=== PATIENT | male | born 1965 | race African-American/Black ===

== ENCOUNTER 2025-04-08 11:14 | Emergency (ER) | payer MEDICAID ==
[~2025-04-08] VITALS: Ht 175.3 cm; Wt 70.0 kg
--- NOTE | 2025-04-08 11:35 | ED.PDOC ---
HPI (NEURO) HPI Comments This is a 60 year old male presenting to the ED with chief complaint of dizziness. Patient reports that he has been experiencing worsening dizziness with associated loss of balance, nausea, and chills since last Saturday. Patient relays that he has been in close contact with sick individuals at his workplace recently. Patient denies any vomiting, diarrhea, chest pain, SOB, headache, or syncope. Chief Complaint: Dizziness Time Seen by MD: 11:33 Reviewed Notes: Nurses Notes, Medications, Allergies Information Source: Patient Mode of Arrival: Ambulatory Severity: Moderate Dizziness/Weakness Severity: Unable to do activities Timing: Days Duration: Since onset Prehospital treatment: None Onset: At rest Circumstances: Spontaneous Associated Signs and Symptoms: Nausea Past Medical History PAST MEDICAL HISTORY: DM Surgical History: Hernia Repair Family History Family History: Reviewed,noncontributory to illness, Family hx of DM, Family hx of HTN Social History Smoker: Non-Smoker Alcohol: Denies ETOH Use Drugs: Denies Drug Use Lives In: Home Constitutional: denies: chills, diaphoresis, fatigue, fever, malaise, sweats, weakness, others EENTM: denies: blurred vision, double vision, ear bleeding, ear discharge, ear drainage, ear pain, ear ringing, eye pain, eye redness, hearing loss, mouth pain, mouth swelling, nasal discharge, nose bleeding, nose congestion, nose pain, photophobia, tearing, throat pain, throat swelling, voice changes, others Respiratory: denies: cough, hemoptysis, orthopnea, SOB at rest, shortness of breath, SOB with excertion, stridor, wheezing, others Cardiovascular: denies: chest pain, dizzy spells, diaphoresis, Dyspnea on exertion, edema, irregular heart beat, left arm pain, lightheadedness, palpitations, PND, syncope, others Gastrointestinal: reports: nausea; denies: abdomen distended, abdominal pain, blood streaked bowels, constipated, diarrhea, dysphagia, difficulty swallowing, hematemesis, melena, poor appetite, poor fluid intake, rectal bleeding, rectal pain, vomiting, others Genitourinary: denies: burning, dysuria, flank pain, frequency, hematuria, incontinence, penile discharge, penile sore, pain, testicle pain, testicle swelling, urgency, others Neurological: reports: dizziness, others (Loss of balance); denies: fainting, headache, left sided numbness, left sided weakness, numbness, paresthesia, pre- existing deficit, right sided numbness, right sided weakness, seizure, speech problems, tingling, tremors, weakness Musculoskeletal: denies: back pain, gout, joint pain, joint swelling, muscle pa in, muscle stiffness, neck pain, others Integumetry: denies: bruises, change in color, change in hair/nails, dryness, laceration, lesions, lumps, rash, wounds, others Allergic/Immunocompromised: denies: Difficulty Healing, Frequent Infections, Hives, Itching, others Hematologic/Lymphatic: denies: anemia, blood clots, easy bleeding, easy bruising, swollen glands, others Endocrine: denies: excessive hunger, excessive sweating, excessive thirst, excessive urination, flushing, intolerance to cold, intolerance to heat, unexplained weight gain, unexplained weight loss, others Psychiatric: denies: anxiety, bipolar disorder, depression, hopeless, panic disorder, schizophrenia, sleepless, suicidal, others All Other Systems: Reviewed and Negative Physical Exam General Appearance: No Apparent Distress HEENT: Normal ENT Inspection, Pharynx Normal, TMs Normal Neck: Full Range of Motion, Non-Tender, Normal, Normal Inspection Respiratory: Chest Non-Tender, Lungs Clear, No Accessory Muscle Use, No Respiratory Distress, Normal Breath Sounds Cardiovascular: No Edema, No JVD, No Murmur, No Gallop, Normal Peripheral Pulses, Regular Rate/Rhythm Breast Exam: Deferred Gastrointestinal: No Organomegaly, Non Tender, No Pulsatile Mass, Normal Bowel Sounds, Soft Genitalia: Deferred Pelvic: Deferred Rectal: Deferred Extremities: No calf tenderness, Normal capillary refill, Normal inspection, Normal range of motion, Non-tender, No pedal edema Musculoskeletal : Apperance: Normal Neurologic: Alert, 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 Was a procedure done?: No Differential Diagnosis (SZ) Seizure: CVA/TIA, Idiopathic, Syncope General Weakness: Anemia X-Ray, Labs, Meds, VS Vital Signs Date Time Temp Pulse Resp B/P (MAP) Pulse Ox O2 Delivery O2 Flow Rate FiO2 04/08/25 11:37 90 04/08/25 11:36 90 04/08/25 11:16 97.8 100 18 119/83 96 97.8 Lab Test 04/08/25 11:40 Range/Units White Blood Count 3.6 L 4.4-10.8 10^3/uL Red Blood Count 5.60 4.5-5.90 10^6/uL Hemoglobin 16.2 13.5-17.5 g/dL Hematocrit 47.9 41.0-53.0 % Mean Corpuscular Volume 85.6 80.0-100.0 fL Mean Corpuscular Hemoglobin 28.8 28.0-32.0 pg Mean Corpuscular Hemoglobin Concent 33.7 32.0-36.0 g/dL Red Cell Distribution Width 13.6 11.8-14.3 % Platelet Count 395 140-450 10^3/uL Mean Platelet Volume 6.6 L 6.9-10.8 fL Neutrophils (%) (Auto) 50.4 37.0-80.0 % Lymphocytes (%) (Auto) 31.4 10.0-50.0 % Monocytes (%) (Auto) 12.9 H 0.0-12.0 % Eosinophils (%) (Auto) 3.4 0.0-7.0 % Basophils (%) (Auto) 1.9 0.0-2.0 % Neutrophils # (Auto) 1.8 1.6-8.6 10 ^3/uL Lymphocytes # (Auto) 1.1 0.4-5.4 10 ^3/uL Monocytes # (Auto) 0.5 0-1.3 10 ^3/uL Eosinophils # (Auto) 0.1 0-0.8 10 ^3/uL Basophils # (Auto) 0.1 0-0.2 10 ^3/uL Nucleated Red Blood Cells 0.0 % Sodium Level 139 136-145 mmol/L Potassium Level 4.0 3.5-5.1 mmol/L Chloride Level 101 98-107 mmol/L Carbon Dioxide Level 31 20-31 mmol/L Anion Gap 7 5-15 Blood Urea Nitrogen 14 9-23 mg/dL Creatinine 1.08 0.700-1.30 mg/dL Glomerular Filtration Rate Calc 79 >90 mL/min BUN/Creatinine Ratio 13.0 10.0-20.0 Serum Glucose 105 74-106 mg/dL Calcium Level 10.4 8.7-10.4 mg/dL Plasma/Serum Blood Alcohol < 3.0 <10 mg/dL Current Medications Medications (Trade) Dose Ordered Sig/Dora Route Start Time Stop Time Status Last Admin Sodium Chloride 1,000 ml @ 1,000 mls/hr Q1H ONCE IV 04/08/25 11:30 04/08/25 12:29 DC 04/08/25 12:23 The CBC is within normal limits The chemistry panel is within normal limits IV Hep-Lock was established. The patient was given a 1 L bolus of normal saline. The patient will follow up with his primary care doctor Time of 1ST Reevaluation: 14:58 Reevaluation 1ST: Improved Patient Education/Counseling: Diagnosis, Treatment, Prognosis, Need For Follow Up Family Education/Counseling: No Family Present Departure 1 Departure Time of Disposition: 14:58 Impression: Primary Impression: Vertigo Disposition: 01 HOME / SELF CARE / HOMELESS Condition: Fair Discharged With: Self Critical Care Note Critical Care Time?: No Stability Stability form required: No Heart Score Heart Score: Heart Score Response (Comments) Value History N/A 0 EKG N/A 0 Age N/A 0 Risk Factors N/A 0 Troponin N/A 0 Total 0 I personally scribed for MIKA ROSE MD ([email or web address]) on 04/08/25 at 11:35. Electronically submitted by Dheeraj Worley ([email or web address]). I personally scribed for MIKA ROSE MD ([email or web address]) on 04/08/25 at 11:37. Electronically submitted by Dheeraj Worley ([email or web address]). MIKA ROSE MD Apr 08, 2025 11:35
--- NOTE | 2025-04-08 11:37 | ECG ---
[facility] Test Date: 2025-04-08 Test Time: 11:36:24 Pat Name: KARI ELDER Department: ED Room: Gender: Shade Hanger: : 1965 Requested By: MIKA ROSE Order Number: [id number] Reading MD: Gonzalo Gracia Measurements Intervals [place] Rate: 90 P: 77 [place]: 137 QRS: 72 QRSD: 86 T: 34 QT: 348 QTc: 426 Interpretive Statements Sinus rhythm Electronically Signed On 04-08-2025 17:08:33 PST by Gonzalo Gracia Please click the below link to view image of tracing.
[2025-04-08 11:57] LABS: Hematocrit 47.9 % (41.0-53.0); Hemoglobin 16.2 g/dL (13.5-17.5); Mean Corpuscular Hemoglobin 28.8 pg (28.0-32.0); Mean Corpuscular Volume 85.6 fL (80.0-100.0); Nucleated Red Blood Cells % 0.0 %
[2025-04-08 12:04] LABS: Chloride 101 mmol/L (98-107); Potassium 4.0 mmol/L (3.5-5.1); Sodium 139 mmol/L (136-145)
[2025-04-08 12:05] LABS: Anion Gap 7 (5-15); Calcium 10.4 mg/dL (8.7-10.4); Carbon Dioxide 31 mmol/L (20-31)
[2025-04-08 12:10] LABS: BUN/Creatinine Ratio 13.0 (10.0-20.0); Blood Urea Nitrogen 14 mg/dL (9-23); Glucose 105 mg/dL (74-106)
[2025-04-08] MEDS: SODIUM CHLORIDE 0.9% 1,000 ML IV ONE (12:23)
[2025-04-08] MEDS: MECLIZINE HCL 25 MG TAB PO STA (15:49)
--- NOTE | 2025-04-08 18:01 | DVH ---
CT HEAD WITHOUT CONTRAST Indication: DIZZINESS EXAM DATE: 04/08/2025 05:36 PM COMPARISON: None TECHNIQUE: CT of the head without intravenous contrast. RADIATION DOSE: CTDIvol: 60 mGy, DLP: 1087 mGy*cm FINDINGS: There is no intracranial hemorrhage. There is no extra-axial fluid, mass, mass effect or midline shift. The ventricles are midline and normal in size. Basilar cisterns are patent. Shin-white differentiation is maintained. Of the mastoids are well pneumatized. Frontal, ethmoid, bilateral maxillary sinus , sphenoid sinus disease. Imaged portion of the orbits are unremarkable. IMPRESSION: No intracranial hemorrhage or mass effect. Extensive paranasal sinus disease.
[2025-04-08 19:42] VITALS: BP 118/86; PULSE 84; RESP 16; TEMP 98.8
[2025-04-08] MEDS ORDERED: MECL12.586 PO (20:52)
[2025-04-08 20:55] VITALS: O2SAT 98
[2025-04-08 22:19] LABS: Urine Protein, UAD TRACE (Negative)
[2025-04-08 23:22] LABS: Amphetamine Screen, Urine NEGATIVE (NEGATIVE); Barbiturate Scree,Urine NEGATIVE (NEGATIVE); Benzodiazephine Screen, Urine NEGATIVE (NEGATIVE); Cannabinoid Screen, Urine NEGATIVE (NEGATIVE); Cocaine Screen, Urine NEGATIVE (NEGATIVE); Opiate Scree,Urine NEGATIVE (NEGATIVE); Phencyclidine Screen, Urine NEGATIVE (NEGATIVE)
== END 2025-04-08 20:54 | disposition home or self-care (01) ==
LOC: ER 11:14
DX: R42 Dizziness and giddiness (principal); E11.9 Type 2 diabetes mellitus without complications; Z79.899 Other long term (current) drug therapy
CPT/HCPCS: 36415; 70450; 80048; 80307; 80320; 81001; 85025; 93005; 96360; 99284; J7030; J8597